=== PATIENT | male | born 1980 | race Caucasian/White ===

== ENCOUNTER 2024-09-22 22:15 | Emergency (ER) | payer SELFPAY ==
[2024-09-22 22:29] VITALS: BP 116/80; PULSE 65; RESP 18; TEMP 36.7; O2SAT 100; BMI 23.7
[2024-09-22 22:43] VITALS: PULSE 66; RESP 20; O2SAT 99
[2024-09-22 22:47] VITALS: BP 103/83; PULSE 64; RESP 18; O2SAT 100
[2024-09-23 00:51] VITALS: BP 127/83; PULSE 70; RESP 18; TEMP 36.5; O2SAT 98
--- NOTE | 2024-09-23 00:59 | EDNOTE_ITS ---
ED Dental RME/HPI General Chief complaint: Dental/Oral/Throat Stated complaint: CHOKED ON FOOD Time Seen by Provider: 09/23/24 01:41 Arrival date/time: 09/22/24 22:15 RME / HPI RME / HPI Narrative: Dr. Cramer?s Main ED Evaluation: 44yo male presents to the ED for a chief complaint of food stuck in his throat. Patient states he was eating steak and shrimp when he felt a piece of meat get stuck in his throat. He attempted to drink water to push it down, but states it didn't help, so he called 911 to come in for evaluation. He denies any weight loss, shortness of breath or any other associated symptoms. No known allergies. Related Data Allergies Allergy/AdvReac Type Severity Reaction Status Date / Time No Known Allergies Allergy Verified 09/22/24 22:42 Review of Systems Review of Systems Systems Reviewed: All systems reviewed, normal except as documented Past Medical History Past Medical History CARDIAC: Negative Congestive Heart Failure RESPIRATORY: Negative Chronic Obstructive Pulmonary Disease (COPD) GENITOURINARY: Negative Renal Disease ENDOCRINE: Negative Diabetes Mellitus Type 1 or Diabetes Mellitus Type 2 Social History SMOKING STATUS: Never smoker ED Exam Narrative Physical exam: GENERAL APPEARANCE: alert and oriented x 4, well-developed, well-nourished; PO water trial was performed, patient vomited most of the water back up; no acute distress VITALS: All vitals were reviewed and the pulse ox is 98% on room air, which is normal according to my interpretation. HEENT: Normocephalic, atraumatic; pupils equal, round, reactive to light; EOMI; mucous membranes pink, moist; oropharynx clear NECK: Supple LUNGS: CTABL; no wheezes, no rales, no rhonchi HEART: Regular rate, regular rhythm; normal S1, S2; no murmurs ABDOMEN: non distended; normal BS; soft, no tenderness, no guarding, no rebound; no masses, no organomegaly, no hernia BACK: no CVA tenderness EXTREMITIES: atraumatic; no edema NEUROLOGIC: awake; alert and oriented x4; cranial nerves II-XII grossly intact; no focal sensory or motor deficits PSYCHIATRIC: appropriate mood and affect SKIN: warm, dry, normal color; no rashes Course Quality Measures none Orders Category Date Time Status Miscellaneous Nursing Order NOW Care 09/23/24 01:42 Completed Vital Signs Vital signs: Vital Signs Temperature 98.1 F 09/22/24 22:29 Pulse Rate 65 09/22/24 22:29 Respiratory Rate 18 09/22/24 22:29 Blood Pressure 116/80 09/22/24 22:29 Pulse Oximetry (%) 100 09/22/24 22:29 Oxygen Delivery Method Room Air 09/22/24 22:29 Dental / Oral MDM Narrative MDM Narrative:: Scribe Attestation: 09/23/24 - Park Moncada am scribing for and in the presence of Dr. Cramer. 0303: Patient drank a soda, reporting it resolved the stuck food bolus. Patient is stable to be discharged home. Patient data External records reviewed:: [facility] previous records (Per chart review, patient has no previous ED visits or admissions to this facility.) Clinical information provided by:: patient Social determinants that could affect healthcare access:: none Patient has the following chronic illnesses:: none How is presenting disease/condition affected by chronic disease/condition?: no chronic disease Evaluation data The following diagnostics were reviewed and interpreted by me:: other (specify) (none) Lab and/or radiology exams considered but not ordered:: none Interpretation Summary: none Medications / Prescriptions Medications or Prescriptions considered but not ordered:: none Medication administrations:: none Consultations Consultation(s) initiated? (list below): No Diagnosis Dental Differential Diagnosis: other (esophageal FB, food bolus, esophageal stricture, esophageal cancer) Most likely diagnosis given after review of the tests above:: see clinical impression below Admission Indicated Admission indicated?: not indicated Admission Request Was there a request for admission?: No Disposition Plan Disposition Plan: Discharge Discharge Attestation Discharge Attestation: The patient and all family members were given an opportunity to ask questions and understood the discharge instructions. Discharge instructions specifically effects, indications for sooner follow up or return to the emergency department, and the expected course of current diagnosis. Patient condition: Stable Discharge Plan Plan Patient Disposition: HOME (Self Care) Prescriptions/Referrals Referrals: Salomon Bhakta MD [Physician] - In 1 week Ivonne Rincon MD [Primary Care Provider] - In 1 week Problem List Clinical Impression: Esophageal foreign body Patient/Caregiver Discharge Instructions Education Materials: ED Foreign Body Esophageal Rslv Additional Instructions: Please return to the ER if you have any further medical problems or any worsening we will help you. Otherwise you should follow-up with your primary care doctor within the next several days. I have given you the contact information for our director food safety, Dr. Bhakta. Please call his office and make a follow-up appointment. Because you had a esophageal meat food bolus stuck in your esophagus, you may need what is called an endoscopy. Endoscopy is a fancy camera that goes down your mouth and your throat and takes a look at your esophagus. Please bring these papers with you when you go to Dr. Bhakta's office and let him read this. You had a meat esophageal foreign body which resolved by drinking soda. Print Language: Serbian Stand Alone Forms: [facility] Award Info., Patient Portal Info Letter
== END 2024-09-23 03:34 | disposition home or self-care (01) ==
PROVIDERS: Emergency Provider Emergency Medicine; PCP Family Medicine
DX: T18.108A Unspecified foreign body in esophagus causing other injury, initial encounter (principal); W44.F3XA Food entering into or through a natural orifice, initial encounter
CPT/HCPCS: 99281